=== PATIENT | female | born 1930 | race American Indian/Alaskan Native ===

== ENCOUNTER 2019-08-07 15:07 | Observation (INO) | payer MEDICARE ==
--- NOTE | 2019-08-07 15:37 | Emergency Department Report ---
ED Neuro Deficit HPI - General Stated Complaint: WEAKNESS - History of Present Illness Initial Comments: [employer] Date of Service: 08/07/2019 15:25:43 Impression: RO Acute Ischemic Stroke Comments: 88 year old female who presents with an episode of syncope vs seizure. Mechanism of Stroke: Not Clear Metrics: Last Known Well: 08/07/2019 14:00:00 [employer] Notification Time: 08/07/2019 15:24:23 Arrival Time: 08/07/2019 15:09:00 Stamp Time: 08/07/2019 15:25:43 Time First Login Attempt: 08/07/2019 15:30:00 Video Start Time: 08/07/2019 15:30:00 Symptoms: Syncope Patient is not a candidate for tPA. Patient was not deemed candidate for tPA thrombolytics because of NIHSS of 0. Video End Time: 08/07/2019 15:48:46 CT head was reviewed. Advanced imaging was not obtained as the presentation was not suggestive of Large Vessel Occlusive Disease. ER physician notified of the decision on thrombolytics management. Our recommendations are outlined below. Recommendations: Antiplatelet Therapy Recommended Recommended Scan: MRI Head with and Without Contrast MRA Head Without Contrast MRA Neck with and Without Contrast Echocardiogram - Transthoracic Echocardiogram Lipid Panel to Be Obtained, if Not Done in the Last Three Months Therapies: Physical Therapy, Occupational Therapy, Speech Therapy Assessment When Applicable Dysphaghia Screen: NPO Until Swallow Evaluation DVT prophylaxis: Choice of Primary Team Disposition: Follow up with Teleneurology Follow up Sign Out: Discussed with Emergency Department Provider History of Present Illness: Patient is a 88 years old Female. Patient was brought by EMS for symptoms of Syncope 88 year old female who presents to the hospital after a syncopal episode while waiting for a bus from the [facility]. Patient remembers going outside to wait for the bus and then the next thing she remembers is being in the ambulance. There was some report of urinary incontinence. There is no known history of seizures. CT head was reviewed. Examination: 1A: Level of Consciousness - Alert; keenly responsive + 0 1B: Ask Month and Age - Both Questions Right + 0 1C: Blink Eyes & Squeeze Hands - Performs Both Tasks + 0 2: Test Horizontal Extraocular Movements - Normal + 0 3: Test Visual Bojorquez - No Visual Loss + 0 4: Test Facial Palsy (Use Grimace if Obtunded) - Normal symmetry + 0 5A: Test Left Arm Motor Drift - No Drift for 10 Seconds + 0 5B: Test Right Arm Motor Drift - No Drift for 10 Seconds + 0 6A: Test Left Leg Motor Drift - No Drift for 5 Seconds + 0 6B: Test Right Leg Motor Drift - No Drift for 5 Seconds + 0 7: Test Limb Ataxia (FNF/Heel-Lynn) - No Ataxia + 0 8: Test Sensation - Normal; No sensory loss + 0 9: Test Language/Aphasia - Normal; No aphasia + 0 10: Test Dysarthria - Normal + 0 11: Test Extinction/Inattention - No abnormality + 0 NIHSS Score: 0 Patient was informed the Neurology Consult would happen via TeleHealth consult by way of interactive audio and video telecommunications and consented to receiving care in this manner. Due to the immediate potential for life-threatening deterioration due to underlying acute neurologic illness, I spent 35 minutes providing critical care. This time includes time for face to face visit via telemedicine, review of medical records, imaging studies and discussion of findings with providers, the patient and/or family. Dr Isabelle Cid [employer] - Related Data Allergies/Adverse Reactions: Allergies Allergy/AdvReac Type Severity Reaction Status Date / Time No Known Allergies Allergy Unverified 08/07/19 15:22 ED Review of Systems ROS: Stated complaint: WEAKNESS Other details as noted in HPI ED Neuro Physical Exam - General Suspected Stroke: No - NIHSS Assessment Interval: Baseline 1a. Level of Consciousness: alert/keenly responsive 1b. LOC Questions: answers both correctly 1c. LOC Commands: performs tasks correctly 2. Best Gaze: normal 3. Visual: no visual loss 4. Facial Palsy: normal symmetrical movement 5b. Motor Arm Right: no drift 5a. Motor Arm Left: no drift 6a. Motor Leg Left: no drift 6b. Motor Leg Right: no drift 7. Limb Ataxia: absent 8. Sensory: normal 9. Best Language: no aphasia 10. Dysarthria: normal 11. Extinction/Inattention: no abnormality Total Score: 0 Stroke Severity: No Stroke Symptoms Critical care attestation.: If time is entered above; I have spent that time in minutes in the direct care of this critically ill patient, excluding procedure time. ED Disposition Clinical Impression: Syncope Disposition: OP ADMIT IP TO THIS HOSP Is pt being admited?: Yes Condition: Stable Instructions: Syncope (ED)
[2019-08-07 15:49] LABS: Basophils # (Auto) 0.1 K/mm3 (0.0-0.1); Basophils % (Auto) 1.2 % (0.0-1.8); Eosinophils # (Auto) 0.1 K/mm3 (0.0-0.4); Hematocrit 41.5 % (30.3-42.9); Hemoglobin 13.6 gm/dl (10.1-14.3); Lymphocytes # (Auto) 1.4 K/mm3 (1.2-5.4); Lymphocytes % (Auto) 20.8 % (13.4-35.0); Mean Corpuscular HGB Conc 33 % (30-34); Mean Corpuscular Volume 99 fl (79-97); Monocytes # (Auto) 0.7 K/mm3 (0.0-0.8); Monocytes % (Auto) 10.8 % (0.0-7.3); Red Cell Distribution Width 13.8 % (13.2-15.2)
--- NOTE | 2019-08-07 15:52 | Cat Scan Report ---
CT head without contrast CLINICAL HISTORY: Cerebrovascular accident FINDINGS: The motion degrades the image quality. However, there is mild cerebral white matter disease most consistent with microvascular angiopathy at. There is also mild cerebral atrophy. The ventricul ar system is correspondingly appropriate in size and configuration. There are foci of calcification within the basal ganglia bilaterally.. There is no clear CT evidence of acute intracranial hemorrhage or significant mass effect. There is minimal mucosal thickening with in the ethmoid air cells. All CT scans at this location are performed using the CT dose reduction for ALARA by means of automated exposure control. 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 The study was specified as code stroke and called emergently to [facility] in the emergency department at 2 :46 PM Central standard time. Signer Name: Jd Bryan MD Signed: 08/07/2019 3:48 PM Workstation Name: [id number]
[2019-08-07 16:10] LABS: BUN/Creatinine Ratio 19; Blood Urea Nitrogen 19 mg/dL (7-17); Calcium 8.9 mg/dL (8.4-10.2); Hemolysis Index 42
[2019-08-07 16:15] LABS: INR 1.03 (0.87-1.13)
--- NOTE | 2019-08-07 16:34 | XRay Report ---
CHEST 2 VIEWS INDICATION / CLINICAL INFORMATION: syncope. COMPARISON: None available. FINDINGS: SUPPORT DEVICES: Left-sided pacemaker HEART / MEDIASTINUM: Cardiomegaly LUNGS / PLEURA: No significant pulmonary or pleural abnormality. No pneumothorax. ADDITIONAL FINDINGS: No significant additional findings. IMPRESSION: Suboptimal inspiration. Cardiomegaly without definite acute disease. Signer Name: Pineda Mayfield MD FACR Signed: 08/07/2019 4:30 PM Workstation Name: [id number]
--- NOTE | 2019-08-07 17:06 | Emergency Department Report ---
ED Neuro Deficit HPI - General Chief Complaint: Weakness Stated Complaint: WEAKNESS Time Seen by Provider: 08/07/19 15:58 Source: EMS Mode of arrival: Stretcher Limitations: No Limitations - History of Present Illness Initial Comments: 88-year-old [place] female with past medical history of hypertension, heart failure with pacemaker implantation, disc glycemia was an adult day care earlier today who called EMS after miss qi was found slumped over towards her left and they reported that she had extreme weakness to her left upper and lower extremity. Qi does not recall the incident at all but she is alert and oriented 3 Emergency department at present. She reports no chest pain no palpitations no nausea or vomiting, but cannot take much about the episode at the adult adult daycare she does not recall the incident. According to EMS she was found with some bowel incontinence and of a normal neurological examination otherwise. Blood pressure was slightly elevated. She reports no new medications, no fever, chills, sweats no rashes no nausea no vomiting no chest pain. Location: left arm, left leg Presenting Symptoms: Present: Weak/Paralyzed One Side History of same: Yes (reports she had a they said a similar episode earlier this year) Place: other Quality: weak Improves With: none Worsens With: none On Anticoagulants: No Context: sudden onset Associated Symptoms: denies other symptoms. denies: fever/chills, malise, nausea/vomiting, vertigo, seizures - Related Data Home Medications: Home Medications Medication Instructions Recorded Confirmed Last Taken Aspirin [Aspirin BABY CHEW TAB] 81 mg PO QDAY 08/07/19 08/07/19 08/07/19 AtorvaSTATin [Lipitor] 10 mg PO QHS 08/07/19 08/07/19 08/07/19 Carvedilol [Coreg] 12.5 mg PO BID 08/07/19 08/07/19 08/07/19 Linagliptin [Tradjenta] 5 mg PO QDAY 08/07/19 08/07/19 08/07/19 Lisinopril [Zestril TAB] 40 mg PO QDAY 08/07/19 08/07/19 08/07/19 Mirabegron [Myrbetriq] 25 mg PO QDAY 08/07/19 08/07/19 08/07/19 Multivitamin [Multiple Vitamins] 1 each PO QDAY 08/07/19 08/07/19 08/07/19 Naproxen 500 mg PO BID 08/07/19 08/07/19 07/28/19 Oxybutynin [Ditropan] 5 mg PO QDAY 08/07/19 08/07/19 08/06/19 Allergies/Adverse Reactions: Allergies Allergy/AdvReac Type Severity Reaction Status Date / Time No Known Allergies Allergy Unverified 08/07/19 15:22 ED Review of Systems ROS: Stated complaint: WEAKNESS Other details as noted in HPI Comment: All other systems reviewed and negative ED Past Medical Hx - Past Medical History Previous Medical History?: Yes Hx Hypertension: Yes Hx Diabetes: Yes Additional medical history: pacemaker - Surgical History Past Surgical History?: Yes Hx Pacemaker: Yes - Social History Smoking Status: Never Smoker Substance Use Type: None - Medications Home Medications: Home Medications Medication Instructions Recorded Confirmed Last Taken Type Aspirin [Aspirin BABY CHEW TAB] 81 mg PO QDAY 08/07/19 08/07/19 08/07/19 History AtorvaSTATin [Lipitor] 10 mg PO QHS 08/07/19 08/07/19 08/07/19 History Carvedilol [Coreg] 12.5 mg PO BID 08/07/19 08/07/19 08/07/19 History Linagliptin [Tradjenta] 5 mg PO QDAY 08/07/19 08/07/19 08/07/19 History Lisinopril [Zestril TAB] 40 mg PO QDAY 08/07/19 08/07/19 08/07/19 History Mirabegron [Myrbetriq] 25 mg PO QDAY 08/07/19 08/07/19 08/07/19 History Multivitamin [Multiple Vitamins] 1 each PO QDAY 08/07/19 08/07/19 08/07/19 History Naproxen 500 mg PO BID 08/07/19 08/07/19 07/28/19 History Oxybutynin [Ditropan] 5 mg PO QDAY 08/07/19 08/07/19 08/06/19 History ED Neuro Physical Exam - General Limitations: No Limitations General appearance: alert, in no apparent distress Suspected Stroke: Yes - Head Head exam: Present: atraumatic, normocephalic - Eye Eye exam: Present: normal appearance - ENT ENT exam: Present: mucous membranes moist - Neck Neck exam: Present: normal inspection - Respiratory Respiratory exam: Present: normal lung sounds bilaterally. Absent: respiratory distress, wheezes, rales - Cardiovascular Cardiovascular Exam: Present: regular rate, normal rhythm. Absent: systolic murmur, diastolic murmur, rubs, gallop - GI/Abdominal GI/Abdominal exam: Present: soft, normal bowel sounds. Absent: distended, tenderness, hyperactive bowel sounds, hypoactive bowel sounds, organomegaly - Extremities Exam Extremities exam: Present: normal inspection, full ROM, normal capillary refill - Back Exam Back exam: Present: normal inspection. Absent: CVA tenderness (R), CVA tenderness (L) - Neurological Exam Neurological exam: Present: alert, oriented X3, CN II-XII intact, reflexes normal - NIHSS Assessment Interval: Baseline 1a. Level of Consciousness: alert/keenly responsive 1b. LOC Questions: answers both correctly 1c. LOC Commands: performs tasks correctly 2. Best Gaze: normal 3. Visual: no visual loss 4. Facial Palsy: normal symmetrical movement 5b. Motor Arm Right: no drift 5a. Motor Arm Left: no drift 6a. Motor Leg Left: no drift 6b. Motor Leg Right: no drift 7. Limb Ataxia: absent 8. Sensory: normal 9. Best Language: no aphasia 10. Dysarthria: normal 11. Extinction/Inattention: no abnormality Total Score: 0 Stroke Severity: No Stroke Symptoms - Psychiatric Psychiatric exam: Present: normal affect, normal mood. Absent: anxious, flat affect, manic, homicidal ideation, suicidal ideation - Skin Skin exam: Present: warm, dry, intact, normal color. Absent: rash ED Course Vital Signs 08/07/19 08/07/19 08/07/19 15:07 15:38 15:46 Temperature 98.5 F Pulse Rate 74 64 Respiratory 17 20 Rate Blood Pressure 187/64 187/64 Blood Pressure [Right] O2 Sat by Pulse 100 98 99 Oximetry 08/07/19 08/07/19 08/07/19 16:00 16:20 16:30 Temperature Pulse Rate 62 65 Respiratory 21 21 Rate Blood Pressure 173/67 173/67 Blood Pressure [Right] O2 Sat by Pulse 99 99 98 Oximetry 08/07/19 08/07/19 08/07/19 16:46 17:00 17:46 Temperature Pulse Rate 61 61 Respiratory 21 20 Rate Blood Pressure 168/64 164/72 164/72 Blood Pressure [Right] O2 Sat by Pulse 99 98 99 Oximetry 08/07/19 17:50 Temperature Pulse Rate 84 Respiratory 17 Rate Blood Pressure Blood Pressure 154/71 [Right] O2 Sat by Pulse 100 Oximetry - Consultations Consultation #1: 08/07/19 18:[address] Espino of missed small and the need for admission for TIA Consultation #2: 08/07/19 18:14 Patient was evaluated by Dr. Reyes Arrival She Had a [id number] - Lab Data Result diagrams: 08/07/19 15:35 08/07/19 15:35 Lab Results 08/07/19 08/07/19 08/07/19 Range/Units 15:35 15:35 15:35 WBC 6.6 (4.5-11.0) K/mm3 RBC 4.20 (3.65-5.03) M/mm3 Hgb 13.6 (10.1-14.3) gm/dl Hct 41.5 (30.3-42.9) % MCV 99 H (79-97) fl MCH 32 (28-32) pg MCHC 33 (30-34) % RDW 13.8 (13.2-15.2) % Lymph % (Auto) 20.8 (13.4-35.0) % [place] % (Auto) 10.8 H (0.0-7.3) % Eos % (Auto) 2.0 (0.0-4.3) % Baso % (Auto) 1.2 (0.0-1.8) % Lymph # 1.4 (1.2-5.4) K/mm3 [place] # 0.7 (0.0-0.8) K/mm3 Eos # 0.1 (0.0-0.4) K/mm3 Baso # 0.1 (0.0-0.1) K/mm3 Seg Neutrophils % 65.2 (40.0-70.0) % Seg Neutrophils # 4.3 (1.8-7.7) K/mm3 PT 13.2 (12.2-14.9) Sec. INR 1.03 (0.87-1.13) APTT 22.0 L (24.2-36.6) Sec. Thrombin Time (15.1-19.6) Sec. Sodium 140 (137-145) mmol/L Potassium 4.3 (3.6-5.0) mmol/L Chloride 104.4 (98-107) mmol/L Carbon Dioxide 22 (22-30) mmol/L Anion Gap 18 mmol/L BUN 19 H (7-17) mg/dL Creatinine 1.0 (0.7-1.2) mg/dL Estimated GFR 53 ml/min BUN/Creatinine Ratio 19 % Glucose 146 H (65-100) mg/dL Calcium 8.9 (8.4-10.2) mg/dL Troponin T < 0.010 (0.00-0.029) ng/mL 08/07/19 Range/Units 15:35 WBC (4.5-11.0) K/mm3 RBC (3.65-5.03) M/mm3 Hgb (10.1-14.3) gm/dl Hct (30.3-42.9) % MCV (79-97) fl MCH (28-32) pg MCHC (30-34) % RDW (13.2-15.2) % Lymph % (Auto) (13.4-35.0) % [place] % (Auto) (0.0-7.3) % Eos % (Auto) (0.0-4.3) % Baso % (Auto) (0.0-1.8) % Lymph # (1.2-5.4) K/mm3 [place] # (0.0-0.8) K/mm3 Eos # (0.0-0.4) K/mm3 Baso # (0.0-0.1) K/mm3 Seg Neutrophils % (40.0-70.0) % Seg Neutrophils # (1.8-7.7) K/mm3 PT (12.2-14.9) Sec. INR (0.87-1.13) APTT (24.2-36.6) Sec. Thrombin Time 14.5 L (15.1-19.6) Sec. Sodium (137-145) mmol/L Potassium (3.6-5.0) mmol/L Chloride (98-107) mmol/L Carbon Dioxide (22-30) mmol/L Anion Gap mmol/L BUN (7-17) mg/dL Creatinine (0.7-1.2) mg/dL Estimated GFR ml/min BUN/Creatinine Ratio % Glucose (65-100) mg/dL Calcium (8.4-10.2) mg/dL Troponin T (0.00-0.029) ng/mL - Medical Decision Making A 8-year-old [place] female was at adult daycare earlier today she had developed what appeared to be left-sided weakness. EMS was dispatched to the facility and she was found to have normal movement of all her extremities and normal speech. There was a little bowel incontinence which she has been given within the daughter states is secondary to a medication and not new etiology. During her emergency room visit she has a normal neurological exam examination with no evidence of deterioration or TIA like symptoms. She was evaluated by the neurologist and believes her symptoms may be more so related to syncope. CT scans were normal laboratory data shows no significant stenosis significant findings. She does have a pacemaker but not complaining of any chest pain or palpitations at current. Plan is to admit Ms. cabrera for no further neurological evaluation given her her presentation and wrist wrist risk factors. [place] and therefore an MRI due to pacemaker. Critical care attestation.: If time is entered above; I have spent that time in minutes in the direct care of this critically ill patient, excluding procedure time. ED Disposition Clinical Impression: Syncope Disposition: OP ADMIT IP TO THIS HOSP Is pt being admited?: Yes Does the pt Need Aspirin: No Condition: Stable Instructions: Syncope (ED)
[2019-08-07] MEDS ORDERED: PROMETHAZINE 25 MG RECT SUPP PR PRN (18:00)
[2019-08-07] MEDS ORDERED: ONDANSETRON 4 MG/2 ML INJ IV PRN (18:00)
[2019-08-07] MEDS ORDERED: MAGNESIUM HYDROXIDE (MOM) ORAL LIQD UDC PO PRN (18:00)
[2019-08-07] MEDS ORDERED: ACETAMINOPHEN 325 MG TAB PO PRN (18:00)
[2019-08-07] MEDS ORDERED: METOCLOPRAMIDE 10 MG TAB PO PRN (18:00)
--- NOTE | 2019-08-07 18:03 | History and Physical Report ---
History of Present Illness Chief complaint: I dont know whats going on History of present illness: 88 YO Female with Obesity,HLD, HTN, Cardiomyopathy S/P Pacemaker Placement, DM presents to ED for evaluation. Pt reports that she does not know why she is in the hospital, and is unable to provide history. Pt daughters are at bedside during exam and interview and provide history. As per daughters, the patient was attending her Adult Day Habil[facility]. [facility] staff reports that patient got dizzy and was unable to speak clearly and subsequently passed out while sitting in her chair. The patient was also found to have left sided weakness as per staff. EMS notified and upon arrival the patient was found to have a neurologic deficit. A code stroke was called, and the patient was transported to [facility]. Pt seen and evaluated in ED and found to have symptoms consistent with CVA as well as UTI. Pt admitted to telemetry, and initiated on CVA protocol as well as IV antibiotic therapy. No prior admission for review. Advanced care planning conducted. Discussed care plan, and code status. Past History Past Medical History: diabetes, hypertension, hyperlipidemia Past Surgical History: Other (Pacemaker) Social history: . denies: smoking, alcohol abuse, prescription drug abuse Family history: diabetes, hypertension Medications and Allergies Allergies Allergy/AdvReac Type Severity Reaction Status Date / Time No Known Allergies Allergy Unverified 08/07/19 15:22 Home Medications Medication Instructions Recorded Confirmed Last Taken Type Aspirin [Aspirin BABY CHEW TAB] 81 mg PO QDAY 08/07/19 08/07/19 08/07/19 History AtorvaSTATin [Lipitor] 10 mg PO QHS 08/07/19 08/07/19 08/07/19 History Carvedilol [Coreg] 12.5 mg PO BID 08/07/19 08/07/19 08/07/19 History Linagliptin [Tradjenta] 5 mg PO QDAY 08/07/19 08/07/19 08/07/19 History Lisinopril [Zestril TAB] 40 mg PO QDAY 08/07/19 08/07/19 08/07/19 History Mirabegron [Myrbetriq] 25 mg PO QDAY 08/07/19 08/07/19 08/07/19 History Multivitamin [Multiple Vitamins] 1 each PO QDAY 08/07/19 08/07/19 08/07/19 History Naproxen 500 mg PO BID 08/07/19 08/07/19 07/28/19 History Oxybutynin [Ditropan] 5 mg PO QDAY 08/07/19 08/07/19 08/06/19 History Active Meds: Active Medications Acetaminophen (Tylenol) 650 mg PO Q4H PRN PRN Reason: Pain, Mild (1-3) Aspirin (Aspirin) 325 mg PO QDAY CANDICE Atorvastatin Calcium (Lipitor) 40 mg PO QHS CANDICE Bisacodyl (Dulcolax) 10 mg MD QDAY PRN PRN Reason: Constipation Magnesium Hydroxide (Milk Of Magnesia) 30 ml PO Q4H PRN PRN Reason: Constipation Metoclopramide HCl (Reglan) 10 mg PO Q6H PRN PRN Reason: Nausea And Vomiting Ondansetron HCl (Zofran) 4 mg IV Q8H PRN PRN Reason: Nausea And Vomiting Promethazine HCl (Phenergan) 25 mg MD Q6H PRN PRN Reason: Nausea And Vomiting Sodium Chloride (Sodium Chloride Flush Syringe 10 Ml) 10 ml INJ PRN PRN PRN Reason: LINE FLUSH Review of Systems Constitutional: no weight loss, no weight gain, no fever, no chills Ears, nose, mouth and throat: no ear pain, no ear discharge, no tinnitis, no decreased hearing, no nose pain, no nasal congestion Breasts: no change in shape, no swelling, no mass Cardiovascular: no chest pain, no orthopnea, no palpitations, no rapid/irregular heart beat, no edema, no syncope Respiratory: no cough, no cough with sputum, no hemoptysis Gastrointestinal: no abdominal pain, no nausea, no vomiting, no diarrhea, no constipation Genitourinary Female: no pelvic pain, no flank pain, no menorrhagia, no dysuria, no urinary frequency, no stress incontinence, no post void dribbling, no incomplete emptying Rectal: no pain, no incontinence, no bleeding Musculoskeletal: no neck stiffness, no neck pain, no shooting arm pain, no low back pain, no shooting leg pain, no leg numbness/tingling Integumentary: no rash, no pruritis, no redness, no sores, no jaundice, no boils Neurological: weakness, syncope, lack of coordination, change in speech, change in mentation, confusion, memory loss, no parathesias, no numbness, no tingling, no vertigo, no headaches, no migraines Psychiatric: no anxiety, no memory loss, no change in sleep habits, no insomnia, no hypersomnia, no change in appetite, no suicidal ideation Endocrine: no cold intolerance, no heat intolerance, no excessive thirst, no polydipsia, no polyuria, no nocturia, no flushing Hematologic/Lymphatic: no easy bruising, no easy bleeding, no lymphadenopathy, no lymphedema Allergic/Immunologic: no urticaria, no allergic rhinitis, no wheezing, no pe rsistent infections, no anaphylaxis, no angioedema Exam - Constitutional Vitals: Temp Pulse Resp BP Pulse Ox 98.5 F 84 17 154/71 100 08/07/19 15:07 08/07/19 17:50 08/07/19 17:50 08/07/19 17:50 08/07/19 17:50 General appearance: Present: mild distress, obese - EENT Eyes: Present: PERRL ENT: hearing intact, clear oral mucosa - Neck Neck: Present: supple, normal ROM - Respiratory Respiratory effort: normal Respiratory: bilateral: CTA - Cardiovascular Heart Sounds: Present: S1 & S2. Absent: rub, click - Extremities Extremities: pulses symmetrical, No edema Peripheral Pulses: within normal limits - Abdominal General gastrointestinal: Present: soft, non-tender, non-distended, normal bowel sounds Female genitourinary: Present: normal - Integumentary Integumentary: Present: clear, warm, dry - Musculoskeletal Musculoskeletal: gait normal, strength equal bilaterally - Psychiatric Psychiatric: appropriate mood/affect, intact judgment & insight - Neurologic Neurologic: CNII-XII intact, moves all extremities Results - Labs CBC & Chem 7: 08/07/19 15:35 08/07/19 15:35 Labs: Abnormal lab results 08/07/19 08/07/19 08/07/19 Range/Units 15:35 15:35 15:35 MCV 99 H (79-97) fl [place] % (Auto) 10.8 H (0.0-7.3) % APTT 22.0 L (24.2-36.6) Sec. Thrombin Time (15.1-19.6) Sec. BUN 19 H (7-17) mg/dL Glucose 146 H (65-100) mg/dL 08/07/19 Range/Units 15:35 MCV (79-97) fl [place] % (Auto) (0.0-7.3) % APTT (24.2-36.6) Sec. Thrombin Time 14.5 L (15.1-19.6) Sec. BUN (7-17) mg/dL Glucose (65-100) mg/dL Assessment and Plan - Patient Problems (1) CVA (cerebral vascular accident) Current Visit: Yes Status: Acute Qualifiers: Laterality of affected vessel: unspecified Plan to address problem: CT Head, Neurology consulted in ED, PT/OT/Speech Therapy, Lipid panel, statin therapy, antiplatelet therapy, Carotid doppler, echo, supportive care. (2) HTN (hypertension) Current Visit: Yes Status: Acute Qualifiers: Hypertension type: essential hypertension Qualified Code(s): I10 - Essential (primary) hypertension Plan to address problem: Monitor bp q shift, supportive care. continue medical management. (3) HLD (hyperlipidemia) Current Visit: Yes Status: Acute Qualifiers: Hyperlipidemia type: mixed hyperlipidemia Qualified Code(s): E78.2 - Mixed hyperlipidemia Plan to address problem: Statin therapy, lipid panel, supportive care. (4) UTI (urinary tract infection) Current Visit: Yes Status: Acute Qualifiers: Encounter type: initial encounter Plan to address problem: IV antibiotic therpay, urinalysis, CBC, CMP, monitor uop q shift, (5) Obesity hypoventilation syndrome Current Visit: Yes Status: Acute Plan to address problem: Supplemental oxygen, pulse oximetry, NIPPV as clinically indicated. (6) Cardiomyopathy Current Visit: Yes Status: Acute Qualifiers: Cardiomyopathy type: unspecified Qualified Code(s): I42.9 - Cardiomyopathy, unspecified Plan to address problem: Telemetry monitoring, Echo, supportive care, thyroid panel, magnesium level. (7) DVT prophylaxis Current Visit: Yes Status: Acute Plan to address problem: SCD to BLE while in bed, supportive care.
[2019-08-07 18:09] LABS: Platelet Count 89 K/mm3 (140-440)
[2019-08-07 18:24] LABS: Bacteria,Urine 4+ /HPF (Negative); Bilirubin,Urine NEG (Negative); Blood,Urine MOD (Negative); Color,Urine Amber (Yellow); Mucus,Urine 2+ /HPF
[2019-08-07 21:17] LABS: Free T4 (Free Thyroxine) 1.22 ng/dL (0.76-1.46)
[2019-08-07] MEDS: NAPROXEN 500 MG TAB PO SCH (22:59)
[2019-08-08 06:18] LABS: Chol/HDL Ratio 3.08 %
[2019-08-08] MEDS: hydrALAZINE 20 MG/1 ML INJ IV PRN ×3 (06:26→21:43)
[2019-08-08] MEDS ORDERED: MULTIVITAMIN PO SCH (10:00)
[2019-08-08] MEDS ORDERED: NON-FORMULARY EACH (Mirabegron [Myrbetriq] 25 MG) PO SCH (10:00)
[2019-08-08] MEDS ORDERED: OXYBUTYNIN 5 MG TAB PO SCH (10:00)
[2019-08-08] MEDS ORDERED: DEXTROSE 50% IN WATER (25GM) 50 ML SYRINGE IV PRN (10:49)
--- NOTE | 2019-08-08 10:52 | Progress Note ---
Assessment and Plan Assessment and plan: 88-year-old woman with history of hypertension, heart failure status post pacemaker, who was sent from adult daycare because she slumped over her food and she was having weakness to her left side?. She was found with some bowel incontinence by the EMS, patient did not recall the incident cva unlikely neuro consult Syncope Follow-up echo, cardiology to interrogate PPM stable chronic CHF, status post pacemaker Follow-up echo, cardiology consult Hypertensive urgency Allowing permissive hypertension for now, continue to monitor closely Hypertension, hyperlipidemia Optimize medications UTI Empiric antibiotics, follow-up urine cultures Diabetes Oral medications on hold, sliding scale insulin, check A1c DVT prophylaxis SCDs, will put on Lovenox after brain MRI if no bleeding seen History Interval history: Review of systems Constitutional: No fevers, no malaise, no joint pains CVS: No chest pain, no orthopnea, no pedal edema GI: No abdominal pain, no diarrhea, no vomiting, no constipation Respiratory: No shortness of breath, no wheezing, no coughing Hospitalist Physical - Physical exam Narrative exam: general.: Appears well, no distress, nontoxic HEENT: Moist mucous membranes, extraocular muscles intact, no lymphadenopathy Neck: supple Cardiac: S1-S2 heard Lungs: clear to auscultation bilaterally Abdomen: soft , nontender, nondistended, bowel sounds positive Extremities: no edema clubbing or cyanosis Skin: no rash or lesions Neurologic: no focal weakness Psych: calm, and cooperative - Constitutional Vitals: Temp Pulse Resp BP Pulse Ox 98.1 F 60 20 170/80 98 08/08/19 08:03 08/08/19 08:03 08/08/19 08:03 08/08/19 08:03 08/08/19 08:03 General appearance: Present: mild distress, obese Results - Labs CBC & Chem 7: 08/07/19 15:35 08/07/19 15:35 Labs: Laboratory Last Values WBC 6.6 K/mm3 (4.5-11.0) 08/07/19 15:35 RBC 4.20 M/mm3 (3.65-5.03) 08/07/19 15:35 Hgb 13.6 gm/dl (10.1-14.3) 08/07/19 15:35 Hct 41.5 % (30.3-42.9) 08/07/19 15:35 MCV 99 fl (79-97) H 08/07/19 15:35 MCH 32 pg (28-32) 08/07/19 15:35 MCHC 33 % (30-34) 08/07/19 15:35 RDW 13.8 % (13.2-15.2) 08/07/19 15:35 Plt Count 89 K/mm3 (140-440) L 08/07/19 15:35 Lymph % (Auto) 20.8 % (13.4-35.0) 08/07/19 15:35 Wolfe % (Auto) 10.8 % (0.0-7.3) H 08/07/19 15:35 Eos % (Auto) 2.0 % (0.0-4.3) 08/07/19 15:35 Baso % (Auto) 1.2 % (0.0-1.8) 08/07/19 15:35 Lymph # 1.4 K/mm3 (1.2-5.4) 08/07/19 15:35 [place] # 0.7 K/mm3 (0.0-0.8) 08/07/19 15:35 Eos # 0.1 K/mm3 (0.0-0.4) 08/07/19 15:35 Baso # 0.1 K/mm3 (0.0-0.1) 08/07/19 15:35 Seg Neutrophils % 65.2 % (40.0-70.0) 08/07/19 15:35 Seg Neutrophils # 4.3 K/mm3 (1.8-7.7) 08/07/19 15:35 PT 13.2 Sec. (12.2-14.9) 08/07/19 15:35 INR 1.03 (0.87-1.13) 08/07/19 15:35 APTT 22.0 Sec. (24.2-36.6) L 08/07/19 15:35 Thrombin Time 14.5 Sec. (15.1-19.6) L 08/07/19 15:35 Sodium 140 mmol/L (137-145) 08/07/19 15:35 Potassium 4.3 mmol/L (3.6-5.0) 08/07/19 15:35 Chloride 104.4 mmol/L (98-107) 08/07/19 15:35 Carbon Dioxide 22 mmol/L (22-30) 08/07/19 15:35 Anion Gap 18 mmol/L 08/07/19 15:35 BUN 19 mg/dL (7-17) H 08/07/19 15:35 Creatinine 1.0 mg/dL (0.7-1.2) 08/07/19 15:35 Estimated GFR 53 ml/min 08/07/19 15:35 BUN/Creatinine Ratio 19 % 08/07/19 15:35 Glucose 146 mg/dL (65-100) H 08/07/19 15:35 Calcium 8.9 mg/dL (8.4-10.2) 08/07/19 15:35 Magnesium 2.10 mg/dL (1.7-2.3) 08/07/19 20:12 Troponin T < 0.010 ng/mL (0.00-0.029) 08/07/19 15:35 Triglycerides 68 mg/dL (2-149) 08/08/19 04:02 Cholesterol 145 mg/dL (50-199) 08/08/19 04:02 LDL Cholesterol Direct 93 mg/dL (50-130) 08/08/19 04:02 HDL Cholesterol 47 mg/dL (40-59) 08/08/19 04:02 Cholesterol/HDL Ratio 3.08 % 08/08/19 04:02 TSH 1.370 mlU/mL (0.270-4.200) 08/07/19 20:12 Free T4 1.22 ng/dL (0.76-1.46) 08/07/19 20:12 Urine Color Pamela (Yellow) 08/07/19 Unknown Urine Turbidity Cloudy (Clear) 08/07/19 Unknown Urine pH 5.0 (5.0-7.0) 08/07/19 Unknown Ur Specific [place] 1.027 (1.003-1.030) 08/07/19 Unknown Urine Protein 30 mg/dl mg/dL (Negative) 08/07/19 Unknown Urine Glucose (UA) Neg mg/dL (Negative) 08/07/19 Unknown Urine Ketones Neg mg/dL (Negative) 08/07/19 Unknown Urine Blood Mod (Negative) 08/07/19 Unknown Urine Nitrite Neg (Negative) 08/07/19 Unknown Urine Bilirubin Neg (Negative) 08/07/19 Unknown Urine Urobilinogen 2.0 mg/dL (<2.0) 08/07/19 Unknown Ur Leukocyte Esterase Mod (Negative) 08/07/19 Unknown Urine WBC (Auto) 21.0 /HPF (0.0-6.0) H 08/07/19 Unknown Urine RBC (Auto) 23.0 /HPF (0.0-6.0) 08/07/19 Unknown U Epithel Cells (Auto) 2.0 /HPF (0-13.0) 08/07/19 Unknown Urine Bacteria (Auto) 4+ /HPF (Negative) 08/07/19 Unknown Urine Mucus 2+ /HPF 08/07/19 Unknown Active Medications - Current Medications Current Medications: Generic Name Dose Route Start Last Admin Trade Name Freq PRN Reason Stop Dose Admin Acetaminophen 650 mg 08/07/19 18:00 Tylenol PO Q4H PRN Pain, Mild (1-3) Aspirin 325 mg 08/08/19 10:00 Aspirin PO QDAY [facility] Aspirin 81 mg 08/08/19 10:00 Baby Aspirin PO QDAY [facility] Atorvastatin Calcium 40 mg 08/07/19 22:00 08/07/19 23:00 Lipitor PO 40 mg QHS [facility] Administration Bisacodyl 10 mg 08/07/19 18:00 Dulcolax IN QDAY PRN Constipation Hydralazine HCl 5 mg 08/08/19 06:03 08/08/19 06:26 Apresoline IV 5 mg Q6H PRN Administration B/P >160/90 Ceftriaxone Sodium 1 gm in 50 mls @ 100 mls/hr 08/08/19 10:00 Rocephin/Ns 1 Gm/50 Ml IV Q24HR [facility] Protocol Magnesium Hydroxide 30 ml 08/07/19 18:00 Milk Of Magnesia PO Q4H PRN Constipation Metoclopramide HCl 10 mg 08/07/19 18:00 Reglan PO Q6H PRN Nausea And Vomiting Miscellaneous Medication 25 mg 08/08/19 10:00 Mirabegron [Myrbetriq] PO QDAY [facility] Multivitamins/Minerals 1 each 08/08/19 10:00 Theragran-M Tab PO QDAY [facility] Naproxen 500 mg 08/07/19 22:00 08/07/19 22:59 Naprosyn PO 500 mg BID [facility] Administration Ondansetron HCl 4 mg 08/07/19 18:00 Zofran IV Q8H PRN Nausea And Vomiting Oxybutynin Chloride 5 mg 08/08/19 10:00 Ditropan PO QDAY [facility] Promethazine HCl 25 mg 08/07/19 18:00 Phenergan IN Q6H PRN Nausea And Vomiting Sodium Chloride 10 ml 08/07/19 18:00 08/07/19 22:59 Sodium Chloride Flush Syringe 10 Ml IV 10 ml PRN PRN Administration LINE FLUSH
[2019-08-08] MEDS: MULTIVITAMINS,THER W-MINERALS TAB PO SCH (11:23)
[2019-08-08] MEDS: ASPIRIN 325 MG TAB PO SCH (11:23)
[2019-08-08] MEDS: cefTRIAXone/NS 1 GM/50 ML 1 GM/50 ML BAG IV SCH (11:23)
[2019-08-08] MEDS: ASPIRIN 81 MG TAB CHEW PO SCH (11:24)
[2019-08-08] MEDS: NAPROXEN 500 MG TAB PO SCH ×3 (11:35→21:44)
[2019-08-08] MEDS: INSULIN LISPRO 100 UNIT/ML SUB-Q SCH ×3 (12:49→22:18)
--- NOTE | 2019-08-08 14:50 | Consultation ---
History of Present Illness Consult date: 08/08/19 History of present illness: 88-year-old female with a past medical history of SSS/PPM, hypertension, hyperlipidemia, chronic moderate pericardial effusion, and diabetes who is adm to [facility] today after experiencing a syncopal spell while seated in a chair. no assoc cp,sob,palp,diaphoresis. pt is a poor historian and hx obtained from daughter at the bedside. pt is followed by dr arfy bliss in our practice. she has a [employer] ppm that was last interrogated 05/2019 and was noted to be functioning properly. she has a known chronic moderate pericardial effusion. currently she is in no distress. ecg and tel demonstrate a properly functioning dual chamber ppm. carotid doppler studies pending. ct head revealed microangiopathy, no acute bleed. Past History Past Medical History: diabetes, hypertension, hyperlipidemia Past Surgical History: Other (Pacemaker) Social history: . denies: smoking, alcohol abuse, prescription drug abuse Family history: diabetes, hypertension Medications and Allergies Allergies Allergy/AdvReac Type Severity Reaction Status Date / Time No Known Allergies Allergy Unverified 08/07/19 15:22 Home Medications Medication Instructions Recorded Confirmed Last Taken Type Aspirin [Aspirin BABY CHEW TAB] 81 mg PO QDAY 08/07/19 08/07/19 08/07/19 History AtorvaSTATin [Lipitor] 10 mg PO QHS 08/07/19 08/07/19 08/07/19 History Carvedilol [Coreg] 12.5 mg PO BID 08/07/19 08/07/19 08/07/19 History Linagliptin [Tradjenta] 5 mg PO QDAY 08/07/19 08/07/19 08/07/19 History Lisinopril [Zestril TAB] 40 mg PO QDAY 08/07/19 08/07/19 08/07/19 History Multivitamin [Multiple Vitamins] 1 each PO QDAY 08/07/19 08/07/19 08/07/19 History Naproxen 500 mg PO BID 08/07/19 08/07/19 07/28/19 History Oxybutynin [Ditropan] 5 mg PO QDAY 08/07/19 08/07/19 08/06/19 History Mirabegron [Myrbetriq] 50 mg PO QDAY 08/08/19 08/08/19 08/07/19 History Active Meds: Active Medications Acetaminophen (Tylenol) 650 mg PO Q4H PRN PRN Reason: Pain, Mild (1-3) Aspirin (Aspirin) 325 mg PO QDAY [facility] Last Admin: 08/08/19 11:23 Dose: 325 mg Documented by: Aspirin (Baby Aspirin) 81 mg PO QDAY [facility] Last Admin: 08/08/19 11:24 Dose: Not Given Documented by: Atorvastatin Calcium (Lipitor) 40 mg PO QHS [facility] Last Admin: 08/07/19 23:00 Dose: 40 mg Documented by: Bisacodyl (Dulcolax) 10 mg [place] QDAY PRN PRN Reason: Constipation Dextrose (D50w (25gm) Syringe) 50 ml IV PRN PRN PRN Reason: Hypoglycemia Hydralazine HCl (Apresoline) 5 mg IV Q6H PRN PRN Reason: B/P >160/90 Last Admin: 08/08/19 13:30 Dose: 5 mg Documented by: Ceftriaxone Sodium (Rocephin/Ns 1 Gm/50 Ml) 1 gm in 50 mls @ 100 mls/hr IV Q24HR [facility]; Protocol Last Admin: 08/08/19 11:23 Dose: 100 mls/hr Documented by: Insulin Human Lispro (Humalog) 0 unit SUB-Q ACHS [facility]; Protocol Last Admin: 08/08/19 12:49 Dose: Not Given Documented by: Magnesium Hydroxide (Milk Of Magnesia) 30 ml PO Q4H PRN PRN Reason: Constipation Metoclopramide HCl (Reglan) 10 mg PO Q6H PRN PRN Reason: Nausea And Vomiting Miscellaneous Medication (Myrbetriq) 50 mg PO DAILY [facility] Multivitamins/Minerals (Theragran-M Tab) 1 each PO QDAY [facility] Last Admin: 08/08/19 11:23 Dose: 1 each Documented by: Naproxen (Naprosyn) 500 mg PO BID [facility] Last Admin: 08/07/19 22:59 Dose: 500 mg Documented by: Ondansetron HCl (Zofran) 4 mg IV Q8H PRN PRN Reason: Nausea And Vomiting Promethazine HCl (Phenergan) 25 mg [place] Q6H PRN PRN Reason: Nausea And Vomiting Sodium Chloride (Sodium Chloride Flush Syringe 10 Ml) 10 ml IV PRN PRN PRN Reason: LINE FLUSH Last Admin: 08/07/19 22:59 Dose: 10 ml Documented by: Review of Systems Constitutional: no weight loss, no fever, no chills Eyes: bilateral: blurred vision (w/o) Ears, nose, mouth and throat: no epistaxis Cardiovascular: no chest pain, no shortness of breath Respiratory: no hemoptysis, no shortness of breath Gastrointestinal: no abdominal pain Genitourinary Female: no flank pain Integumentary: no rash Neurological: syncope, no convulsions Psychiatric: no anxiety Endocrine: no cold intolerance, no heat intolerance Hematologic/Lymphatic: no easy bruising Allergic/Immunologic: no urticaria Physical Examination Vital Signs Temp Pulse Resp BP Pulse Ox 98.5 F 74 17 187/64 100 08/07/19 15:07 08/07/19 15:07 08/07/19 15:07 08/07/19 15:07 08/07/19 15:07 General appearance: no acute distress HEENT: Positive: PERRL Neck: Positive: neck supple. Negative: JVD/HJR, Bruit Cardiac: Positive: Reg Rate and Rhythm. Negative: Audible Murmur Lungs: Positive: clear to auscultation Neuro: Positive: Grossly Intact Abdomen: Positive: Soft. Negative: Tender Skin: Positive: Clear Musculoskeletal: Normal Range of Motion Extremities: Present: Other (pedal pulses intact). Absent: edema Results 08/07/19 15:35 08/07/19 15:35 Coagulation 08/07/19 Range/Units 15:35 PT 13.2 (12.2-14.9) Sec. INR 1.03 (0.87-1.13) APTT 22.0 L (24.2-36.6) Sec. Lipids 08/08/19 Range/Units 04:02 Triglycerides 68 (2-149) mg/dL Cholesterol 145 (50-199) mg/dL HDL Cholesterol 47 (40-59) mg/dL Cholesterol/HDL Ratio 3.08 % CBC 08/07/19 Range/Units 15:35 WBC 6.6 (4.5-11.0) K/mm3 RBC 4.20 (3.65-5.03) M/mm3 Hgb 13.6 (10.1-14.3) gm/dl Hct 41.5 (30.3-42.9) % Plt Count 89 L (140-440) K/mm3 Lymph # 1.4 (1.2-5.4) K/mm3 [place] # 0.7 (0.0-0.8) K/mm3 Eos # 0.1 (0.0-0.4) K/mm3 Baso # 0.1 (0.0-0.1) K/mm3 Comprehensive Metabolic Panel 08/07/19 Range/Units 15:35 Sodium 140 (137-145) mmol/L Potassium 4.3 (3.6-5.0) mmol/L Chloride 104.4 (98-107) mmol/L Carbon Dioxide 22 (22-30) mmol/L BUN 19 H (7-17) mg/dL Creatinine 1.0 (0.7-1.2) mg/dL Glucose 146 H (65-100) mg/dL Calcium 8.9 (8.4-10.2) mg/dL Assessment and Plan sick sinus syndrome s/p ppm implantation htn dm chronic pericardial effusion syncope rec: tele monitoring. echo findings noted. await carotid doppler studies. neurol consult. interrogate ppm further rec per hosp course.
--- NOTE | 2019-08-08 15:09 | Vascular Lab Report ---
"DUPLEX DOPPLER ULTRASOUND CAROTID, BILATERAL INDICATION: stroke. FINDINGS: RIGHT CAROTID: Small amount of calcified plaque Right ICA peak systolic velocity: 84 cm/sec. Right Vertebral Artery: Antegrade flow. LEFT CAROTID: Small amount of atherosclerotic plaque. Left ICA peak systolic velocity: 123 cm/sec. Left Vertebral Artery: Antegrade flow. IMPRESSION: 1. Right Internal Carotid Artery: Less than 50% diameter stenosis. 2. Left Internal Carotid Artery: Less than 50% diameter stenosis. Velocity criteria are extrapolated from diameter data as defined by the Society of Radiologists in Ul trasound Consensus Conference, Radiology 2003; 229;340-346. Degree of Stenosis (%) || ICA PSV (cm/sec) || Plaque estimate (%) || ICA/CCA PSV Ratio Normal <125 None <2.0 <50 <125 <50 <2.0 50-69 125-230 50 2.0-4.0 70 but less than 100 >230 50 >4.0 Near occlusion High, low, or none visible variable Total occlusion None visible; no lumen N/A Signer Name: Ignacio Middleton MD Signed: 08/08/2019 3:04 PM Workstation Name: [id number]"
--- NOTE | 2019-08-08 16:28 | Consultation ---
History of Present Illness Consult date: 08/08/19 History of present illness: went over the CT and there is atrophy present no acute stroke reviewed the ED notes and other labs see notes/ checked imaging checked labs Past History Past Medical History: diabetes, hypertension, hyperlipidemia Past Surgical History: Other (Pacemaker) Social history: . denies: smoking, alcohol abuse, prescription drug abuse Family history: diabetes, hypertension Medications and Allergies Allergies Allergy/AdvReac Type Severity Reaction Status Date / Time No Known Allergies Allergy Unverified 08/07/19 15:22 Home Medications Medication Instructions Recorded Confirmed Last Taken Type Aspirin [Aspirin BABY CHEW TAB] 81 mg PO QDAY 08/07/19 08/07/19 08/07/19 History AtorvaSTATin [Lipitor] 10 mg PO QHS 08/07/19 08/07/19 08/07/19 History Carvedilol [Coreg] 12.5 mg PO BID 08/07/19 08/07/19 08/07/19 History Linagliptin [Tradjenta] 5 mg PO QDAY 08/07/19 08/07/19 08/07/19 History Lisinopril [Zestril TAB] 40 mg PO QDAY 08/07/19 08/07/19 08/07/19 History Multivitamin [Multiple Vitamins] 1 each PO QDAY 08/07/19 08/07/19 08/07/19 History Naproxen 500 mg PO BID 08/07/19 08/07/19 07/28/19 History Oxybutynin [Ditropan] 5 mg PO QDAY 08/07/19 08/07/19 08/06/19 History Mirabegron [Myrbetriq] 50 mg PO QDAY 08/08/19 08/08/19 08/07/19 History Active Meds: Active Medications Acetaminophen (Tylenol) 650 mg PO Q4H PRN PRN Reason: Pain, Mild (1-3) Aspirin (Aspirin) 325 mg PO QDAY [facility] Last Admin: 08/08/19 11:23 Dose: 325 mg Documented by: Aspirin (Baby Aspirin) 81 mg PO QDAY [facility] Last Admin: 08/08/19 11:24 Dose: Not Given Documented by: Atorvastatin Calcium (Lipitor) 40 mg PO QHS [facility] Last Admin: 08/07/19 23:00 Dose: 40 mg Documented by: Bisacodyl (Dulcolax) 10 mg [place] QDAY PRN PRN Reason: Constipation Dextrose (D50w (25gm) Syringe) 50 ml IV PRN PRN PRN Reason: Hypoglycemia Hydralazine HCl (Apresoline) 5 mg IV Q6H PRN PRN Reason: B/P >160/90 Last Admin: 08/08/19 13:30 Dose: 5 mg Documented by: Ceftriaxone Sodium (Rocephin/Ns 1 Gm/50 Ml) 1 gm in 50 mls @ 100 mls/hr IV Q24HR [facility]; Protocol Last Admin: 08/08/19 11:23 Dose: 100 mls/hr Documented by: Insulin Human Lispro (Humalog) 0 unit SUB-Q ACHS [facility]; Protocol Last Admin: 08/08/19 12:49 Dose: Not Given Documented by: Magnesium Hydroxide (Milk Of Magnesia) 30 ml PO Q4H PRN PRN Reason: Constipation Metoclopramide HCl (Reglan) 10 mg PO Q6H PRN PRN Reason: Nausea And Vomiting Miscellaneous Medication (Myrbetriq) 50 mg PO DAILY [facility] Multivitamins/Minerals (Theragran-M Tab) 1 each PO QDAY [facility] Last Admin: 08/08/19 11:23 Dose: 1 each Documented by: Naproxen (Naprosyn) 500 mg PO BID [facility] Last Admin: 08/08/19 15:01 Dose: 500 mg Documented by: Ondansetron HCl (Zofran) 4 mg IV Q8H PRN PRN Reason: Nausea And Vomiting Promethazine HCl (Phenergan) 25 mg [place] Q6H PRN PRN Reason: Nausea And Vomiting Sodium Chloride (Sodium Chloride Flush Syringe 10 Ml) 10 ml IV PRN PRN PRN Reason: LINE FLUSH Last Admin: 08/07/19 22:59 Dose: 10 ml Documented by: Physical Examination - Vital Signs Vital Signs: Vital Signs Temp Pulse Resp BP Pulse Ox 98.5 F 74 17 187/64 100 08/07/19 15:07 08/07/19 15:07 08/07/19 15:07 08/07/19 15:07 08/07/19 15:07 Results - Laboratory Findings CBC and BMP: 08/07/19 15:35 08/07/19 15:35 Abnormal Lab Findings: Abnormal Labs 08/07/19 08/07/19 08/07/19 15:35 15:35 15:35 MCV 99 H Plt Count 89 L [place] % (Auto) 10.8 H APTT 22.0 L Thrombin Time BUN 19 H Glucose 146 H POC Glucose Urine WBC (Auto) 08/07/19 08/07/19 08/08/19 15:35 Unknown 11:34 MCV Plt Count Young % (Auto) APTT Thrombin Time 14.5 L BUN Glucose POC Glucose 119 H Urine WBC (Auto) 21.0 H
[2019-08-08] MEDS: MYRBETRIQ 50 MG PO SCH (17:06)
[2019-08-09] MEDS: INSULIN LISPRO 100 UNIT/ML SUB-Q SCH ×2 (07:58→13:24)
[2019-08-09] MEDS: hydrALAZINE 20 MG/1 ML INJ IV PRN (08:39)
--- NOTE | 2019-08-09 08:52 | Event Note ---
Date: 08/09/19 no cp or sob nad chest clear cor rrr abd soft ext w/o edema bp as high as 228/77 tel: paced ppm interrogation/[place] sci/ normal function. no events imp: syncope s/p ppm for sick sinus synd. ppm functioning properly neurol consult noted continue current mgt resume home bp meds: lisinopril,coreg,nifedipine discussed with family member at bedside
[2019-08-09] MEDS ORDERED: carvediloL 12.5 MG TAB PO SCH (10:00)
[2019-08-09] MEDS ORDERED: LISINOPRIL 20 MG TAB PO SCH ×2 (10:00→10:52)
[2019-08-09] MEDS ORDERED: amLODIPine 5 MG TAB PO SCH (10:00)
[2019-08-09] MEDS: ASPIRIN 325 MG TAB PO SCH (10:44)
[2019-08-09] MEDS: ASPIRIN 81 MG TAB CHEW PO SCH (10:44)
[2019-08-09] MEDS: MULTIVITAMINS,THER W-MINERALS TAB PO SCH (10:45)
[2019-08-09] MEDS: NAPROXEN 500 MG TAB PO SCH (10:46)
[2019-08-09] MEDS: MYRBETRIQ 50 MG PO SCH (10:46)
[2019-08-09] MEDS: cefTRIAXone/NS 1 GM/50 ML 1 GM/50 ML BAG IV SCH (10:47)
[2019-08-09] MEDS ORDERED: LISINOPRIL 20 MG TAB PO ONE (10:51)
--- NOTE | 2019-08-09 10:52 | Discharge Summary ---
Providers - Providers Date of Admission: 08/07/19 18:00 Attending physician: SUSAN LAMBERT MD 08/07/19 18:00 Occupational Therapy Evaluate and Treat [CONS] Routine Comment: Reason For Exam: Neuro deficits Physical Therapy Evaluation and Treat [CONS] Routine Comment: Reason For Exam: Neuro deficits 08/07/19 18:01 Speech Therapy Evaluation and Treat [CONS] Routine Reason For Exam: swallow eval 08/07/19 18:05 Consult to Physician [CONS] Routine Comment: Consulting Provider: MEME ROMANO Physician Instructions: Reason For Exam: cva 08/08/19 10:49 Consult to Dietitian/Nutrition [CONS] Routine Physician Instructions: 10 Reason For Exam: Reason for Consult: Diet education 08/08/19 12:25 Consult to Physician [CONS] Routine Comment: CARMELA Consulting Provider: RORY NEAL Physician Instructions: CONSULT WAS CALLLED TO KIRA Reason For Exam: syncope, need PM interrogated Consult to Physician [CONS] Routine Comment: CARMELA Consulting Provider: RICHIE FRY Physician Instructions: CONSULT WAS CALLED TO DR. FRY/LISS Reason For Exam: syncope Primary care physician: WEI CORTES MD Hospitalization Condition: Stable Hospital course: 88-year-old woman with history of hypertension, heart failure status post pacemaker, who was sent from adult daycare because she slumped over her food and she was having weakness to her left side?. She was found with some bowel incontinence by the EMS, patient did not recall the incident cva unlikely neuro consult appreciated, there is no evidence of stroke from the history or her exam. Syncope/transient autonomic imbalance Echo showed EF of 45% and diastolic dysfunction. Pacemaker was interrogated, no events were noted Carotid Doppler showed no significant stenosis -Syncope was most likely due to UTI stable chronic CHF, status post pacemaker She was continued on her cardiac medications Hypertensive urgency He was restarted on her meds and improved Hypertension, hyperlipidemia Optimize medications UTI Urine culture grew gram-negative rods patient was discharged on antibiotics Diabetes A1c was 5.8. Recommended discontinuing Tradjenta at time of discharge, as hypoglycemia is dangerous at her age DVT prophylaxis SCDs, will put on Lovenox after brain MRI if no bleeding seen Disposition: TO HOME OR SELFCARE Time spent for discharge: 33 min Core Measure Documentation - Palliative Care Palliative Care/ Comfort Measures: Not Applicable - Core Measures Any of the following diagnoses?: heart failure, none - Heart Failure Discharge Requirements OLIVIER/ARB for LVSD if EF <40%: Yes Beta mo at discharge: Yes Exam - Constitutional Vitals: Temp Pulse Resp BP Pulse Ox 98.2 F 60 18 228/77 100 08/09/19 05:18 08/09/19 08:39 08/09/19 05:18 08/09/19 08:39 08/09/19 08:13 General appearance: Present: no acute distress, well-nourished - EENT Eyes: Present: PERRL ENT: hearing intact, clear oral mucosa - Neck Neck: Present: supple, normal ROM - Respiratory Respiratory effort: normal Respiratory: bilateral: CTA - Cardiovascular Heart Sounds: Present: S1 & S2. Absent: rub, click - Extremities Extremities: pulses symmetrical, No edema Peripheral Pulses: within normal limits - Abdominal General gastrointestinal: Present: soft, non-tender, non-distended, normal bowel sounds Female genitourinary: Present: normal - Integumentary Integumentary: Present: clear, warm, dry - Musculoskeletal Musculoskeletal: gait normal, strength equal bilaterally - Psychiatric Psychiatric: appropriate mood/affect, intact judgment & insight - Neurologic Neurologic: CNII-XII intact, moves all extremities Plan Follow up with: WEI CORTES MD [Primary Care Provider] - 7 Days Prescriptions: cephALEXin [Keflex] 500 mg PO Q12HR #6 cap
[2019-08-09] MEDS ORDERED: hydrALAZINE 20 MG/1 ML INJ IV PRN (10:53)
--- NOTE | 2019-08-09 10:54 | Progress Note ---
Assessment and Plan Assessment and plan: 88-year-old woman with history of hypertension, heart failure status post pacemaker, who was sent from adult daycare because she slumped over her food and she was having weakness to her left side?. She was found with some bowel incontinence by the EMS, patient did not recall the incident cva unlikely neuro consult Syncope Follow-up echo, cardiology to interrogate PPM stable chronic CHF, status post pacemaker Follow-up echo, cardiology consult Hypertensive urgency Allowing permissive hypertension for now, continue to monitor closely Hypertension, hyperlipidemia Optimize medications UTI Empiric antibiotics, follow-up urine cultures Diabetes Oral medications on hold, sliding scale insulin, check A1c DVT prophylaxis SCDs, will put on Lovenox after brain MRI if no bleeding seen History Interval history: Review of systems Constitutional: No fevers, no malaise, no joint pains CVS: No chest pain, no orthopnea, no pedal edema GI: No abdominal pain, no diarrhea, no vomiting, no constipation Respiratory: No shortness of breath, no wheezing, no coughing Hospitalist Physical - Physical exam Narrative exam: general.: Appears well, no distress, nontoxic HEENT: Moist mucous membranes, extraocular muscles intact, no lymphadenopathy Neck: supple Cardiac: S1-S2 heard Lungs: clear to auscultation bilaterally Abdomen: soft , nontender, nondistended, bowel sounds positive Extremities: no edema clubbing or cyanosis Skin: no rash or lesions Neurologic: no focal weakness Psych: calm, and cooperative - Constitutional Vitals: Temp Pulse Resp BP Pulse Ox 98.2 F 60 18 228/77 100 08/09/19 05:18 08/09/19 08:39 08/09/19 05:18 08/09/19 08:39 08/09/19 08:13 General appearance: Present: no acute distress, well-nourished Results - Labs CBC & Chem 7: 08/07/19 15:35 08/07/19 15:35 Labs: Laboratory Last Values WBC 6.6 K/mm3 (4.5-11.0) 08/07/19 15:35 RBC 4.20 M/mm3 (3.65-5.03) 08/07/19 15:35 Hgb 13.6 gm/dl (10.1-14.3) 08/07/19 15:35 Hct 41.5 % (30.3-42.9) 08/07/19 15:35 MCV 99 fl (79-97) H 08/07/19 15:35 MCH 32 pg (28-32) 08/07/19 15:35 MCHC 33 % (30-34) 08/07/19 15:35 RDW 13.8 % (13.2-15.2) 08/07/19 15:35 Plt Count 89 K/mm3 (140-440) L 08/07/19 15:35 Lymph % (Auto) 20.8 % (13.4-35.0) 08/07/19 15:35 [place] % (Auto) 10.8 % (0.0-7.3) H 08/07/19 15:35 Eos % (Auto) 2.0 % (0.0-4.3) 08/07/19 15:35 Baso % (Auto) 1.2 % (0.0-1.8) 08/07/19 15:35 Lymph # 1.4 K/mm3 (1.2-5.4) 08/07/19 15:35 [place] # 0.7 K/mm3 (0.0-0.8) 08/07/19 15:35 Eos # 0.1 K/mm3 (0.0-0.4) 08/07/19 15:35 Baso # 0.1 K/mm3 (0.0-0.1) 08/07/19 15:35 Seg Neutrophils % 65.2 % (40.0-70.0) 08/07/19 15:35 Seg Neutrophils # 4.3 K/mm3 (1.8-7.7) 08/07/19 15:35 PT 13.2 Sec. (12.2-14.9) 08/07/19 15:35 INR 1.03 (0.87-1.13) 08/07/19 15:35 APTT 22.0 Sec. (24.2-36.6) L 08/07/19 15:35 Thrombin Time 14.5 Sec. (15.1-19.6) L 08/07/19 15:35 Sodium 140 mmol/L (137-145) 08/07/19 15:35 Potassium 4.3 mmol/L (3.6-5.0) 08/07/19 15:35 Chloride 104.4 mmol/L (98-107) 08/07/19 15:35 Carbon Dioxide 22 mmol/L (22-30) 08/07/19 15:35 Anion Gap 18 mmol/L 08/07/19 15:35 BUN 19 mg/dL (7-17) H 08/07/19 15:35 Creatinine 1.0 mg/dL (0.7-1.2) 08/07/19 15:35 Estimated GFR 53 ml/min 08/07/19 15:35 BUN/Creatinine Ratio 19 % 08/07/19 15:35 Glucose 146 mg/dL (65-100) H 08/07/19 15:35 POC Glucose 104 (70-105) 08/09/19 07:48 Hemoglobin A1c 5.8 % (4-6) 08/08/19 11:08 Calcium 8.9 mg/dL (8.4-10.2) 08/07/19 15:35 Magnesium 2.10 mg/dL (1.7-2.3) 08/07/19 20:12 Troponin T < 0.010 ng/mL (0.00-0.029) 08/07/19 15:35 Triglycerides 68 mg/dL (2-149) 08/08/19 04:02 Cholesterol 145 mg/dL (50-199) 08/08/19 04:02 LDL Cholesterol Direct 93 mg/dL (50-130) 08/08/19 04:02 HDL Cholesterol 47 mg/dL (40-59) 08/08/19 04:02 Cholesterol/HDL Ratio 3.08 % 08/08/19 04:02 TSH 1.370 mlU/mL (0.270-4.200) 08/07/19 20:12 Free T4 1.22 ng/dL (0.76-1.46) 08/07/19 20:12 Urine Color [place] (Yellow) 08/07/19 Unknown Urine Turbidity Cloudy (Clear) 08/07/19 Unknown Urine pH 5.0 (5.0-7.0) 08/07/19 Unknown Ur Specific [place] 1.027 (1.003-1.030) 08/07/19 Unknown Urine Protein 30 mg/dl mg/dL (Negative) 08/07/19 Unknown Urine Glucose (UA) Neg mg/dL (Negative) 08/07/19 Unknown Urine Ketones Neg mg/dL (Negative) 08/07/19 Unknown Urine Blood Mod (Negative) 08/07/19 Unknown Urine Nitrite Neg (Negative) 08/07/19 Unknown Urine Bilirubin Neg (Negative) 08/07/19 Unknown Urine Urobilinogen 2.0 mg/dL (<2.0) 08/07/19 Unknown Ur Leukocyte Esterase Mod (Negative) 08/07/19 Unknown Urine WBC (Auto) 21.0 /HPF (0.0-6.0) H 08/07/19 Unknown Urine RBC (Auto) 23.0 /HPF (0.0-6.0) 08/07/19 Unknown U Epithel Cells (Auto) 2.0 /HPF (0-13.0) 08/07/19 Unknown Urine Bacteria (Auto) 4+ /HPF (Negative) 08/07/19 Unknown Urine Mucus 2+ /HPF 08/07/19 Unknown Active Medications - Current Medications Current Medications: Generic Name Dose Route Start Last Admin Trade Name Freq PRN Reason Stop Dose Admin Acetaminophen 650 mg 08/07/19 18:00 Tylenol PO Q4H PRN Pain, Mild (1-3) Amlodipine Besylate 5 mg 08/09/19 10:00 Norvasc PO QDAY CANDICE Aspirin 325 mg 08/08/19 10:00 08/08/19 11:23 Aspirin PO 325 mg QDAY CANDICE Administration Aspirin 81 mg 08/08/19 10:00 08/08/19 11:24 Baby Aspirin PO Not Given QDAY CANDICE Atorvastatin Calcium 40 mg 08/07/19 22:00 08/08/19 21:43 Lipitor PO 40 mg QHS CANDICE Administration Bisacodyl 10 mg 08/07/19 18:00 Dulcolax [place] QDAY PRN Constipation Carvedilol 12.5 mg 08/09/19 10:00 Coreg PO BID CANDICE Dextrose 50 ml 08/08/19 10:49 D50w (25gm) Syringe IV PRN PRN Hypoglycemia Hydralazine HCl 10 mg 08/09/19 10:53 Apresoline IV Q4HR PRN BP >160/100 Ceftriaxone Sodium 1 gm in 50 mls @ 100 mls/hr 08/08/19 10:00 08/08/19 11:23 Rocephin/Ns 1 Gm/50 Ml IV 100 mls/hr Q24HR CANDICE Administration Protocol Insulin Human Lispro 0 unit 08/08/19 11:30 08/09/19 07:58 Humalog SUB-Q Not Given ACHS [facility] Protocol Lisinopril 40 mg 08/09/19 10:52 Zestril PO QDAY CANDICE Lisinopril 20 mg 08/09/19 10:51 Zestril PO 08/09/19 10:52 ONCE ONE Magnesium Hydroxide 30 ml 08/07/19 18:00 Milk Of Magnesia PO Q4H PRN Constipation Metoclopramide HCl 10 mg 08/07/19 18:00 Reglan PO Q6H PRN Nausea And Vomiting Miscellaneous Medication 50 mg 08/08/19 15:00 08/08/19 17:06 Myrbetriq PO 50 mg DAILY [facility] Administration Multivitamins/Minerals 1 each 08/08/19 10:00 08/08/19 11:23 Theragran-M Tab PO 1 each QDAY CANDICE Administration Naproxen 500 mg 08/07/19 22:00 08/08/19 21:44 Naprosyn PO 500 mg BID CANDICE Administration Ondansetron HCl 4 mg 08/07/19 18:00 Zofran IV Q8H PRN Nausea And Vomiting Promethazine HCl 25 mg 08/07/19 18:00 Phenergan [place] Q6H PRN Nausea And Vomiting Sodium Chloride 10 ml 08/07/19 18:00 08/07/19 22:59 Sodium Chloride Flush Syringe 10 Ml IV 10 ml PRN PRN Administration LINE FLUSH Nutrition/Malnutrition Assess - Dietary Evaluation Nutrition/Malnutrition Findings: Nutrition Notes Start: 08/09/19 09:08 Freq: Status: Active Protocol: Document 08/09/19 09:08 LP (Rec: 08/09/19 09:09 LP [id number]) Nutrition Notes Need for Assessment generated from: MD Order Initial or Follow up Brief Note Current Diagnosis Diabetes,Hypertension,Heart Failure Current Diet Cardiac/consistent CHO Subjective/Other Information Consult for diet education. Pt states following DM and cardiac diet at home. Pt consuming 100% of breakfast this AM. No nutrition needs at this time. Nutrition Intervention Revisit per MD consult or patient Sign Off request:
[2019-08-09 12:56] VITALS: BP 174/67
== END 2019-08-09 15:19 | disposition home or self-care (01) ==
LOC: ED 15:07 → 4A 18:00
PROVIDERS: ADMIT Internal Medicine; ATTEND Internal Medicine
DX: I63.9 Cerebral infarction, unspecified (principal); I11.0 Hypertensive heart disease with heart failure; I50.9 Heart failure, unspecified; E78.5 Hyperlipidemia, unspecified; N39.0 Urinary tract infection, site not specified; E66.2 Morbid (severe) obesity with alveolar hypoventilation; I42.9 Cardiomyopathy, unspecified; R55 Syncope and collapse; E11.9 Type 2 diabetes mellitus without complications; I49.5 Sick sinus syndrome; I31.3 Pericardial effusion (noninflammatory); Z95.0 Presence of cardiac pacemaker; Z79.82 Long term (current) use of aspirin; Z68.38 Body mass index [BMI] 38.0-38.9, adult
CPT/HCPCS: 36415; 70450; 71046; 80048; 80061; 81001; 82962; 83036; 83735; 84439; 84443; 84484; 85025; 85610; 85670; 85730; 87086; 87116; 92610; 93005; 93010; 93306; 93880; 96365; 96366; 96375; 96376; 99284; A9270; G0378; J0360; J0696